=== PATIENT | female | born 1960 | race African-American/Black ===

== ENCOUNTER 2016-10-11 17:34 | Inpatient (IN) | payer OTHER ==
--- NOTE | 2016-10-11 18:11 | HP ---
CIWA Score - CIWA Score Nausea/Vomitin Muscle Tremors: 3 Anxiety: 3 Agitation: 2 Paroxysmal Sweats: 1-Minimal Palms Moist Orientation: 0-Oriented Tacttile Disturbances: 2-Mild Itch/Numbness/Burn Auditory Disturbances: 2-Mild Harshness/Frighten Visual Disturbances: 2-Mild Sensitivity Headache: 2-Mild CIWA-Ar Total Score: 20 Admission ROS BHS - HPI Chief Complaint: I NEED HELP TO STOP DRINKING ALCOHOL AND DRUG COCAINE Allergies/Adverse Reactions: Allergies Allergy/AdvReac Type Severity Reaction Status Date / Time No Known Allergies Allergy Verified 10/11/16 18:04 History of Present Illness: THIS 56 YEARS OLD FEMALE WITH ALCOHOL AND COCAINE DEPENDENCE,WITHDRAWAL SYMPTOM, LAST DETOX 09/08 NOT COMPLETED,LEFT AFTER ONE DAY, HTN ON MEDICATION HIV SINCE 1995 WIEUGHT LOSS NICOTINE DEPENDENCE LONGEST PERIOD SOBRIETY 17 YEARS Exam Limitations: No Limitations - Ebola screening Have you traveled outside of the country in the last 21 days: No Have you had contact with anyone from an Ebola affected area: No Do you have a fever: No - Review of Systems Constitutional: Loss of Appetite, Malaise, Night Sweats, Changes in sleep, Weakness, Unintentional Wgt. Loss EENT: reports: Nose Congestion Respiratory: reports: No Symptoms reported Cardiac: reports: Palpitations GI: reports: Diarrhea, Nausea, Poor Appetite, Vomiting, Abdominal cramping : reports: No Symptoms Reported Musculoskeletal: reports: Back Pain, Muscle Pain Integumentary: reports: Dryness Neuro: reports: Tremors Endocrine: reports: No Symptoms Reported Hematology: reports: No Symptoms Reported, Other (HIV) Psychiatric: reports: Depressed Patient History - Patient Medical History Hx Anemia: No Hx Asthma: No Hx Chronic Obstructive Pulmonary Disease (COPD): No Hx Cancer: No Hx Cardiac Disorders: No Hx Congestive Heart Failure: No Hx Hypertension: No Hx Hypercholesterolemia: No Hx Pacemaker: No HX Cerebrovascular Accident: No Hx Seizures: No Hx Dementia: No Hx Diabetes: No Hx Gastrointestinal Disorders: No Hx Liver Disease: No Hx Genitourinary Disorders: No Hx Sexually Transmitted Disorders: No Hx Renal Disease (ESRD): No Hx Thyroid Disease: No Hx Human Immunodeficiency Virus (HIV): Yes (SINCE 1995) Hx Hepatitis C: No Hx Depression: Yes Hx Suicide Attempt: No Hx Bipolar Disorder: No Hx Schizophrenia: No Other Medical History: NO SUICIDAL,NO HOLICIDAL - Patient Surgical History Hx Cholecystectomy: Yes (LAP CHOLECYSTECTOMY 2004 ) - PPD History Previous Implant?: Yes Documented Results: Negative w/o proof Implanted On Prior [facility] Admission?: No PPD to be Administered?: Yes - Reproductive History Patient is a Female of Child Bearing Age (11 -55 yrs old): Yes Patient : No - Smoking Cessation Smoking history: Current every day smoker Have you smoked in the past 12 months: Yes Aproximately how many cigarettes per day: 20 Cigars Per Day: 0 Hx Chewing Tobacco Use: No Initiated information on smoking cessation: Yes 'Breaking Loose' booklet given: 10/11/16 - Substance & Tx. History Hx Alcohol Use: Yes Hx Substance Use: No Substance Use Type: Alcohol, Cocaine Hx Substance Use Treatment: Yes ([facility] 09/08 NOT CPMPLETED) - Substances Abused Alcohol Route: Oral Frequency: Daily Amount used: 1PINT OF VODKA/4 OF 40 OZS OF BEER Age of first use: 15 Date of Last Use: 10/10/16 Cocaine Route: Smoking Frequency: Daily Amount used: 200$ Age of first use: 36 Date of Last Use: 10/09/16 Family Disease History - Family Disease History Family Disease History: Other: Mother (ALCOHOL,), Brother (ALCOHOL), Sister (ALCOHOL,DSA) Admission Physical Exam S - Vital Signs Vital Signs: Vital Signs Temperature 98.4 F 10/11/16 18:35 Pulse Rate 75 10/11/16 18:35 Respiratory Rate 20 10/11/16 18:35 Blood Pressure 155/94 10/11/16 18:35 O2 Sat by Pulse Oximetry (%) - Physical General Appearance: Yes: Moderate Distress, Tremorous, Irritable, Sweating, Anxious HEENTM: Yes: Nasal Congestion, Rhinorrhea Respiratory: Yes: Lungs Clear Neck: Yes: Within Normal Limits Breast: Yes: Breast Exam Deferred Cardiology: Yes: Within Normal Limits, Regular Rate, S1, S2 Abdominal: Yes: Within Normal Limits, Normal Bowel Sounds, Non Tender, Flat, Soft Genitourinary: Yes: Within Normal Limits Back: Yes: Muscle Spasm Musculoskeletal: Yes: Back pain, Muscle Pain Extremities: Yes: Tremors Neurological: Yes: maintenance construction helper II-XII NML intact, Fully Oriented, Alert, Motor Strength 5/5 Integumentary: Yes: Dry Lymphatic: Yes: Within Normal Limits - Diagnostic (1) Alcohol dependence with uncomplicated withdrawal Current Visit: Yes Status: Acute (2) Cocaine dependence, uncomplicated Current Visit: Yes Status: Acute (3) Essential hypertension Current Visit: Yes Status: Acute (4) HIV (human immunodeficiency virus infection) Current Visit: Yes Status: Acute (5) Weight loss Current Visit: Yes Status: Acute (6) S/P laparoscopic cholecystectomy Current Visit: Yes Status: Acute (7) Nicotine dependence Current Visit: Yes Status: Acute Cleared for Admission BHS - Detox or Rehab [facility] Level of Care: Medically Managed Detox Regimen/Protocol: Librium BHS Breath Alcohol Content Breath Alcohol Content: 0 Vital Signs - Vital Signs Vital Signs Refused: No Temperature: 98.4 F Temperature Source: Oral Pulse Rate: 75 Respiratory Rate: 20 Blood Pressure: 155/94 BP Location: Left Arm - Height Height: 5 ft 4 in - Weight Weight: 154 lb Weight Measurement Method: Standing Scale Body Mass Index (BMI): 26.4 Urine Pregancy Test - Test Device Lot Number: [id number] Expiration Date: 03/22/18 - Control Horizontal Line in Upper Control Window?: Yes - Result Urine Test Results: Negative- NO Line Present Urine Drug Screen - Test Device Lot Number: [id number] Expiration Date: 12/20/17 - Control Is Test Valid: Yes - Results Drug Screen Negative: No Urine Drug Screen Results: YANET-Cocaine
[2016-10-11 18:27] VITALS: BMI 26.4
[2016-10-11] MEDS ORDERED: LOPERAMIDE HCL 2 MG CAPSULE PO PRN (18:36)
[2016-10-11] MEDS ORDERED: MENTHOL/PHENOL 1 EACH UD MM PRN (18:36)
[2016-10-11] MEDS ORDERED: NICOTINE POLACRILEX 2 MG GUM BC PRN (18:36)
[2016-10-11] MEDS ORDERED: IBUPROFEN 400 MG TABLET (FP) PO PRN (18:36)
[2016-10-11] MEDS ORDERED: MAGNESIUM HYDROX 2400MG/30ML ORAL SUSPENSION 30 ML CUP PO PRN (18:36)
[2016-10-11] MEDS ORDERED: MAG HYDROX/AL HYDROX/SIMETH 30 ML UNIT-DOSE CUP PO PRN (18:36)
[2016-10-11] MEDS ORDERED: chlordiazePOXIDE HCL 25 MG CAPSULE PO ONE (18:36)
[2016-10-11] MEDS ORDERED: ACETAMINOPHEN 325 MG TABLET (FP) PO PRN (18:36)
[2016-10-11] MEDS ORDERED: guaiFENesin/D-METHORPHAN HB 10 ML UNIT-DOSE CUPS PO PRN (18:36)
[2016-10-11] MEDS ORDERED: MAGNESIUM CITRATE 300 ML BOTTLE PO PRN (18:36)
[2016-10-11] MEDS ORDERED: hydrOXYzine PAMOATE 50 MG CAPSULE (FP) PO PRN (18:36)
[2016-10-11] MEDS ORDERED: P-EPHED 60MG/TRIPROLIDI 2.5MG TABLET PO PRN (18:36)
[2016-10-11] MEDS ORDERED: chlordiazePOXIDE HCL 25 MG CAPSULE PO PRN (18:36)
[2016-10-11] MEDS ORDERED: diphenhydrAMINE HCL 50 MG CAPSULE PO PRN (18:36)
[2016-10-11] MEDS ORDERED: cloNIDine HCL 0.1 MG TABLET PO ONE (20:08)
[2016-10-11] MEDS: THIAMINE HCL 100 MG TABLET (FP) PO SCH (22:43)
[2016-10-11] MEDS: chlordiazePOXIDE HCL 25 MG CAPSULE PO SCH (22:43)
[2016-10-12] MEDS: chlordiazePOXIDE HCL 25 MG CAPSULE PO SCH ×4 (06:31→22:40)
[2016-10-12 10:08] LABS: ALBUMIN 3.1 g/dl (3.4-5.0); CALCIUM 8.5 mg/dL (8.5-10.1); MCH 21.3 pg (25.7-33.7); MCHC 30.6 g/dl (32.0-36.0); MEAN CELL VOLUME 69.8 fl (80-96); MEAN PLT VOLUME 8.7 fl (7.5-11.1); PLATELET COUNT 224 K/MM3 (134-434); RDW 17.6 % (11.6-15.6)
[2016-10-12 10:10] LABS: BILIRUBIN,TOTAL 0.3 mg/dL (0.2-1.0); TOT PROT 7.1 g/dl (6.4-8.2)
[2016-10-12] MEDS: PRENATAL VITAMINS W/ FOLIC ACID TABLET (FP) PO SCH (10:57)
--- NOTE | 2016-10-12 13:13 | PN ---
S CIWA - CIWA Score Nausea/Vomitin Muscle Tremors: 3 Anxiety: 3 Agitation: 2 Paroxysmal Sweats: 1-Minimal Palms Moist Orientation: 0-Oriented Tacttile Disturbances: 1-Very Mild Itch/Numbness Auditory Disturbances: 1-Very Mild Visual Disturbances: 1-Very Mild Sensitivity Headache: 2-Mild CIWA-Ar Total Score: 17 BHS Progress Note (SOAP) Subjective: ALERT,IRRITABLE,ANXIOUS,INTERRUPTED SLEEP,TREMOR Objective: 10/12/16 13:11 Vital Signs Temperature 98.4 F 10/12/16 13:07 Pulse Rate 75 10/12/16 13:07 Respiratory Rate 20 10/12/16 13:07 Blood Pressure 155/94 10/12/16 13:07 O2 Sat by Pulse Oximetry (%) EKG NSR LVH Laboratory Last Values WBC 8.0 K/mm3 (4.0-10.0) 10/12/16 06:15 RBC 5.33 M/mm3 (3.60-5.2) H 10/12/16 06:15 Hgb 11.4 GM/dL (10.7-15.3) 10/12/16 06:15 Hct 37.2 % (32.4-45.2) 10/12/16 06:15 MCV 69.8 fl (80-96) L 10/12/16 06:15 MCHC 30.6 g/dl (32.0-36.0) L 10/12/16 06:15 RDW 17.6 % (11.6-15.6) H 10/12/16 06:15 Plt Count 224 K/MM3 (134-434) 10/12/16 06:15 MPV 8.7 fl (7.5-11.1) 10/12/16 06:15 Sodium 144 mmol/L (136-145) 10/12/16 06:15 Potassium 3.5 mmol/L (3.5-5.1) 10/12/16 06:15 Chloride 108 mmol/L (98-107) H 10/12/16 06:15 Carbon Dioxide 29 mmol/L (21-32) 10/12/16 06:15 Anion Gap 7 (8-16) L 10/12/16 06:15 BUN 17 mg/dL (7-18) 10/12/16 06:15 Creatinine 1.0 mg/dL (0.55-1.02) 10/12/16 06:15 Creat Clearance w eGFR 57.56 (>60) 10/12/16 06:15 Random Glucose 91 mg/dL (74-106) 10/12/16 06:15 Calcium 8.5 mg/dL (8.5-10.1) 10/12/16 06:15 Total Bilirubin 0.3 mg/dL (0.2-1.0) 10/12/16 06:15 AST 17 U/L (15-37) 10/12/16 06:15 ALT 19 U/L (12-78) 10/12/16 06:15 Alkaline Phosphatase 86 U/L (45-117) 10/12/16 06:15 Total Protein 7.1 g/dl (6.4-8.2) 10/12/16 06:15 Albumin 3.1 g/dl (3.4-5.0) L 10/12/16 06:15 OTHER LABS PENDING Assessment: 10/12/16 13:12 WITHDRAWAL SYMPTOM Plan: CONTINUE DETOX
[2016-10-12] MEDS ORDERED: cloNIDine HCL 0.1 MG TABLET PO ONE (13:30)
--- NOTE | 2016-10-12 14:13 | CONSULT ---
[facility] Psychiatric Consult - Data Date of interview: 10/12/16 Admission source: [facility] Identifying data: First admission to [facility] for this 56 y/o AA female seeking detox treatment on for alcohol and cocaine (crack) dependence.Patient is single,a mother of eight,homeless (snf),unemployed and supported on [employer] funds. Substance Abuse History: - Smoking Cessation. Smoking history: Current every day smoker. Have you smoked in the past 12 months: Yes. Aproximately how many cigarettes per day: 20. Cigars Per Day: 0. Hx Chewing Tobacco Use: No. Initiated information on smoking cessation: Yes. 'Breaking Loose' booklet given : 10/11/16. - Substance & Tx. History. Hx Alcohol Use: Yes. Hx Substance Use : No. Substance Use Type: Alcohol, Cocaine. Hx Substance Use Treatment: Yes ( [facility] 09/08 NOT CPMPLETED). - Substances Abused. Alcohol. Route: Oral. Frequency: Daily. Amount used: 1PINT OF VODKA/4 OF 40 OZS OF BEER. Age of first use: 15. Date of Last Use: 10/10/16. Cocaine. Route: Smoking. Frequency: Daily. Amount used: 200$. Age of first use: 36. Date of Last Use: 10/09/16. Patient confirmed this report of substance use in my interview. Medical History: HIV infection since 1995 (on ART drugs),hypertension,CVA with right sided weakness (1975),Hinkle's palsy (left palpebral ptosis),herpes genitalis and a history of cholecystectomy (2004). Psychiatric History: No reported history of psychiatric hospitalizations.Patient remembers that,in the past,she had received the diagnosis of MDD." I used to be on psychiatric medications but I stopped taking them a long time ago." Names of the medications are not recalled.Ms Johnson states that she is not interested in medications other than her detox drugs.She reports a history of suicide attempts via overdose with medications. Physical/Sexual Abuse/Trauma History: Patient denies. Additional Comment: Urine Drug Screen Results: YANET-Cocaine.Noted. Mental Status Exam - Mental Status Exam Alert and Oriented to: Time, Place, Person Cognitive Function: Good Patient Appearance: Well Groomed Mood: Hopeful, Euthymic Affect: Appropriate, Normal Range Patient Behavior: Fatigued, Appropriate, Cooperative Speech Pattern: Clear Voice Loudness: Normal Thought Process: Goal Oriented Thought Disorder: Not Present Hallucinations: Denies Suicidal Ideation: Denies Homicidal Ideation: Denies Insight/Judgement: Poor Sleep: Well Appetite: Good Gait/Station: Shuffling (due to past stroke) Psychiatric Findings - Problem List ([place] 1, 2,3) (1) Alcohol dependence with uncomplicated withdrawal Current Visit: Yes Status: Acute (2) Cocaine dependence, uncomplicated Current Visit: Yes Status: Acute (3) Essential hypertension Current Visit: Yes Status: Acute (4) HIV (human immunodeficiency virus infection) Current Visit: Yes Status: Acute (5) Nicotine dependence Current Visit: Yes Status: Acute (6) S/P laparoscopic cholecystectomy Current Visit: No Status: Chronic - Initial Treatment Plan Initial Treatment Plan: Psychoeducation.Detoxification.Observation.
[2016-10-12 16:16] LABS: URINE APPEARANCE CLEAR; URINE BILIRUBIN NEGATIVE (NEGATIVE); URINE BLOOD NEGATIVE (NEGATIVE); URINE COLOR LTYELLOW; URINE GLUCOSE (UA) NEGATIVE (NEGATIVE); URINE KETONE NEGATIVE (NEGATIVE); URINE NITRITE NEGATIVE (NEGATIVE); URINE PROTEIN NEGATIVE (NEGATIVE); URINE UROBILINOGEN NEGATIVE E.U./dl (0.2-1.0)
[2016-10-12 16:20] LABS: URINE LEUK ESTERASE 1+ (NEGATIVE)
--- NOTE | 2016-10-12 16:26 | EKG ---
Test Reason : Blood Pressure : / mmHG Vent. Rate : 071 BPM Atrial Rate : 071 BPM P-R Int : 188 ms QRS Dur : 096 ms QT Int : 418 ms P-R-T Axes : 051 015 018 degrees QTc Int : 454 ms NORMAL SINUS RHYTHM VOLTAGE CRITERIA FOR LEFT VENTRICULAR HYPERTROPHY ABNORMAL ECG NO PREVIOUS ECGS AVAILABLE Confirmed by JUNIOR MCGINNIS MD ([id number]) on 10/12/2016 4:26:29 PM Referred By: Confirmed By:JUNIOR MCGINNIS MD
[2016-10-12 17:05] LABS: URINE WBC 4 /hpf (3-5)
[2016-10-12] MEDS: THIAMINE HCL 100 MG TABLET (FP) PO SCH (22:40)
[2016-10-13] MEDS: chlordiazePOXIDE HCL 25 MG CAPSULE PO SCH ×3 (06:45→17:17)
[2016-10-13] MEDS: PRENATAL VITAMINS W/ FOLIC ACID TABLET (FP) PO SCH (10:55)
--- NOTE | 2016-10-13 13:32 | PN ---
S CIWA - CIWA Score Nausea/Vomitin Muscle Tremors: 2 Anxiety: 2 Agitation: 2 Paroxysmal Sweats: 3 Orientation: 0-Oriented Tacttile Disturbances: 1-Very Mild Itch/Numbness Auditory Disturbances: 0-None Visual Disturbances: 0-None Headache: 0-None Present CIWA-Ar Total Score: 12 S Progress Note (SOAP) Subjective: sweats , interrupted sleep Objective: 10/13/16 13:31 Vital Signs Temperature 97.9 F 10/13/16 10:19 Pulse Rate 79 10/13/16 10:19 Respiratory Rate 18 10/13/16 10:19 Blood Pressure 150/85 10/13/16 10:19 O2 Sat by Pulse Oximetry (%) Laboratory Tests 10/12/16 10/12/16 10/12/16 06:15 06:15 06:15 WBC 8.0 RBC 5.33 H Hgb 11.4 Hct 37.2 MCV 69.8 L MCHC 30.6 L RDW 17.6 H Plt Count 224 MPV 8.7 Sodium 144 Potassium 3.5 Chloride 108 H Carbon Dioxide 29 Anion Gap 7 L BUN 17 Creatinine 1.0 Creat Clearance w eGFR 57.56 Random Glucose 91 Calcium 8.5 Total Bilirubin 0.3 AST 17 ALT 19 Alkaline Phosphatase 86 Total Protein 7.1 Albumin 3.1 L Urine Color Urine Appearance Urine pH Ur Specific [place] Urine Protein Urine Glucose (UA) Urine Ketones Urine Blood Urine Nitrite Urine Bilirubin Urine Urobilinogen Ur Leukocyte Esterase Urine WBC Ur Epithelial Cells RPR Titer Nonreactive 10/12/16 15:30 WBC RBC Hgb Hct MCV MCHC RDW Plt Count MPV Sodium Potassium Chloride Carbon Dioxide Anion Gap BUN Creatinine Creat Clearance w eGFR Random Glucose Calcium Total Bilirubin AST ALT Alkaline Phosphatase Total Protein Albumin Urine Color Ltyellow Urine Appearance Clear Urine pH 6.0 Ur Specific [place] 1.010 Urine Protein Negative Urine Glucose (UA) Negative Urine Ketones Negative Urine Blood Negative Urine Nitrite Negative Urine Bilirubin Negative Urine Urobilinogen Negative Ur Leukocyte Esterase 1+ H Urine WBC 4 Ur Epithelial Cells Rare RPR Titer pt aox3 in nad ambulating Assessment: 10/13/16 13:32 withdrawl sx's Plan: cont. detox increase fluids
[2016-10-13] MEDS: THIAMINE HCL 100 MG TABLET (FP) PO SCH (22:44)
[2016-10-13] MEDS: chlordiazePOXIDE 5 MG CAPSULE PO SCH (22:44)
[2016-10-14] MEDS: chlordiazePOXIDE 5 MG CAPSULE PO SCH ×4 (06:01→18:18)
[2016-10-14] MEDS: PRENATAL VITAMINS W/ FOLIC ACID TABLET (FP) PO SCH (10:33)
--- NOTE | 2016-10-14 11:43 | PN ---
BHS Progress Note (SOAP) Subjective: tired sweats Objective: 10/14/16 11:42 Vital Signs Temperature 98.1 F 10/14/16 10:29 Pulse Rate 91 H 10/14/16 10:29 Respiratory Rate 16 10/14/16 10:29 Blood Pressure 162/89 10/14/16 10:29 O2 Sat by Pulse Oximetry (%) awake/alert ambulating no acute distress Assessment: 10/14/16 11:42 withdrawal sx Plan: continue detox increase fluids d/c in am
[2016-10-14] MEDS ORDERED: cloNIDine HCL 0.1 MG TABLET PO ONE (14:05)
[2016-10-14] MEDS ORDERED: NICOTINE 21 MG/24 HOURS TOPICAL PATCH TD SCH (14:15)
[2016-10-14] MEDS: THIAMINE HCL 100 MG TABLET (FP) PO SCH (22:48)
[2016-10-14] MEDS: chlordiazePOXIDE HCL 10 MG CAPSULE PO SCH (22:48)
[2016-10-15] MEDS: chlordiazePOXIDE HCL 10 MG CAPSULE PO SCH (07:40)
--- NOTE | 2016-10-15 09:16 | DS ---
[facility] Detox Discharge Summary Admission Date: 10/11/16 Discharge Date: 10/15/16 - History Present History: Alcohol Dependence, Cocaine Dependence - Physical Exam Results Vital Signs: Vital Signs Temperature 98.3 F 10/15/16 07:08 Pulse Rate 77 10/15/16 07:08 Respiratory Rate 18 10/15/16 07:08 Blood Pressure 134/74 10/15/16 07:08 O2 Sat by Pulse Oximetry (%) - Treatment Hospital Course: Detox Protocol Followed, Detoxed Safely, Responded well, Discharged Condition Good - Medication Discharge Medications: Ambulatory Orders Unobtainable [Unobtainable] 10/11/16 - Diagnosis (1) Alcohol dependence with uncomplicated withdrawal Current Visit: Yes Status: Chronic (2) Cocaine dependence, uncomplicated Current Visit: Yes Status: Chronic (3) Essential hypertension Current Visit: Yes Status: Chronic (4) HIV (human immunodeficiency virus infection) Current Visit: Yes Status: Chronic (5) Nicotine dependence Current Visit: Yes Status: Acute Qualifiers: Nicotine product type: cigarettes Substance use status: uncomplicated Qualified Code(s): F17.210 - Nicotine dependence, cigarettes, uncomplicated (6) Weight loss Current Visit: Yes Status: Acute - AMA Did Patient Leave Against Medical Advice: No
[2016-10-15 09:55] VITALS: BP 158/92; PULSE 86; TEMP 98.2
== END 2016-10-15 10:07 | disposition home or self-care (01) | DRG 774 ==
LOC: YASAS 17:34 → Y6N 19:00
PROVIDERS: ADMIT Internal Medicine; ATTEND Internal Medicine Addiction Medicine
PROC: HZ2ZZZZ Detoxification Services for Substance Abuse Treatment (ICD-10-PCS; principal; 2016-10-11)
DX: F10.230 Alcohol dependence with withdrawal, uncomplicated (principal); F14.20 Cocaine dependence, uncomplicated; F17.210 Nicotine dependence, cigarettes, uncomplicated; I10 Essential (primary) hypertension; Z21 Asymptomatic human immunodeficiency virus [HIV] infection status; Z87.898 Personal history of other specified conditions; Z90.49 Acquired absence of other specified parts of digestive tract; Z87.42 Personal history of other diseases of the female genital tract; Z86.73 Personal history of transient ischemic attack (TIA), and cerebral infarction without residual deficits
CPT/HCPCS: 36415; 80053; 81003; 81015; 85027; 86593; 93005; 93010

== ENCOUNTER 2018-12-26 17:00 | Inpatient (IN) | payer OTHER ==
[2018-12-26 18:57] VITALS: BMI 24.0
--- NOTE | 2018-12-26 20:14 | HP ---
CIWA Score Nausea/Vomitin-No Nausea/No Vomiting Muscle Tremors: None Anxiety: 1-Mildly Anxious Agitation: 0-Normal Activity Paroxysmal Sweats: No Perspiration Orientation: 0-Oriented Tacttile Disturbances: 0-None Auditory Disturbances: 0-None Visual Disturbances: 0-None Headache: 0-None Present CIWA-Ar Total Score: 1 - Admission Criteria OASAS Guidelines: Admission for Medically Managed Detox: Requires at least one of the followin. CIWA greater than 12 2. Seizures within the past 24 hours 3. Delirium tremens within the past 24 hours 4. Hallucinations within the past 24 hours 5. Acute intervention needed for co occurring medical disorder 6. Acute intervention needed for co occurring psychiatric disorder 7. Severe withdrawal that cannot be handled at a lower level of care (continued vomiting, continued diarrhea, abnormal vital signs) requiring intravenous medication and/or fluids 8. Admission ROS S - [facility] Chief Complaint: I use a lot of cocaine and drink some alcohol. Allergies/Adverse Reactions: Allergies Allergy/AdvReac Type Severity Reaction Status Date / Time No Known Allergies Allergy Verified 12/26/18 18:36 History of Present Illness: Here for detox from cocaine and alcohol. Has had recent attempts of stopping cocaine use on own w/o achievement. Cocaine use since age 22. Started w/ sniffing and started smoking cocaine since age 39. Uses approx $ 200/day. Alcohol use since age 15. Used to drink more. Current use is now 2-3 16-24 ox cans 1-2x/week. Nicotine use since age 15. Current use approx 2 PPD. PMHx: HTN; Hinkle's Palsy; HIV; Herpes rash. States compliant w/ all medications. MHHx: Depression. Denies thoughts of harming self or others. States does not see a psychiatrist. Longest period of sobriety [id number] Current CIWA is a "1" and patient is not eligible for detox, but does meet rehab requirements. Patient states willing to go to rehab. Search Terms: Abimael Johnson, 1960 Search Date: 12/26/2018 08:23:11 PM The Drug Utilization Report below displays all of the controlled substance prescriptions, if any, that your patient has filled in the last twelve months. The information displayed on this report is compiled from pharmacy submissions to the Department, and accurately reflects the information as submitted by the pharmacies. This report was requested by: Caryl Zayas | Reference #: [id number] There are no results for the search terms that you entered Exam Limitations: No Limitations - Ebola screening Have you traveled outside of the country in the last 21 days: No (N) Have you had contact with anyone from an Ebola affected area: No Have you been sick,other than usual withdrawal symptoms: No (Denies recent measles exposure) Do you have a fever: No - Review of Systems Constitutional: Changes in sleep (Difficulty falling asleep) EENT: reports: Blurred Vision, Dental Problems (No pain.), Other Respiratory: reports: No Symptoms reported Cardiac: reports: No Symptoms Reported GI: reports: Diarrhea (Watery, brownish stool x 4 weeks. - States takes OTC imodium) : reports: No Symptoms Reported Musculoskeletal: reports: No Symptoms Reported Integumentary: reports: Other (Herpes rash on buttocks) Neuro: reports: Other ([place]' Palsy) Endocrine: reports: No Symptoms Reported Hematology: reports: Anemia (Unsure of type) Psychiatric: reports: Judgement Intact, Orientated x3, Depressed (Denies thoughts of harming self or others) Patient History - Patient Medical History Hx Anemia: No Hx Asthma: No Hx Chronic Obstructive Pulmonary Disease (COPD): No Hx Cancer: No Hx Cardiac Disorders: No Hx Congestive Heart Failure: No Hx Hypertension: No Hx Hypercholesterolemia: No Hx Pacemaker: No HX Cerebrovascular Accident: No Hx Seizures: No Hx Dementia: No Hx Diabetes: No Hx Gastrointestinal Disorders: No Hx Liver Disease: No Hx Genitourinary Disorders: No Hx Sexually Transmitted Disorders: No Hx Renal Disease (ESRD): No Hx Thyroid Disease: No Hx Human Immunodeficiency Virus (HIV): Yes (SINCE 1995) Hx Hepatitis C: No Hx Depression: Yes Hx Suicide Attempt: No Hx Bipolar Disorder: No Hx Schizophrenia: No - Patient Surgical History Past Surgical History: Yes Hx Neurologic Surgery: No Hx Cataract Extraction: No Hx Cardiac Surgery: No Hx Lung Surgery: No Hx Breast Surgery: No Hx Breast Biopsy: No Hx Abdominal Surgery: No Hx Appendectomy: No Hx Cholecystectomy: Yes (LAP CHOLECYSTECTOMY 2004 ) Hx Genitourinary Surgery: No Hx Section: No Hx Orthopedic Surgery: No Anesthesia Reaction: No - PPD History Previous Implant?: Yes Documented Results: Negative w/proof Implanted On Prior R Admission?: Yes Date: 10/13/16 PPD to be Administered?: No - Reproductive History Last Menstrual Period: 08/12/15 Patient : No - Smoking Cessation Smoking history: Current every day smoker Have you smoked in the past 12 months: Yes Aproximately how many cigarettes per day: 40 Cigars Per Day: 0 Hx Chewing Tobacco Use: No Initiated information on smoking cessation: Yes 'Breaking Loose' booklet given: 12/26/18 - Substance & Tx. History Hx Alcohol Use: Yes Hx Substance Use: Yes Substance Use Type: Alcohol, Cocaine Hx Substance Use Treatment: Yes (detox, rehab) - Substances abused Alcohol Substance route: Oral Frequency: Daily Amount used: 5 CANS OF BEER (24 OUNCES) Age of first use: 15 Date of last use: 12/26/18 Crack Substance route: Smoking Frequency: Daily Amount used: 200 Date of last use: 12/25/18 Family Disease History - Family Disease History Family Disease History: Other: Mother (ALCOHOL,), Brother (ALCOHOL), Sister (ALCOHOL,DSA) Admission Physical Exam [facility] - Vital Signs Vital Signs: Vital Signs - 24 hr 12/26/18 12/26/18 18:30 19:32 Temperature 97.8 F 97.8 F Pulse Rate 68 68 Respiratory 20 20 Rate Blood Pressure 158/80 158/80 - Physical General Appearance: Yes: No Apparent Distress, Anxious HEENTM: Yes: EOMI, Hearing grossly Normal, Normal Voice, TRUDI, Pharynx Normal, Other ((L) facial droop) Respiratory: Yes: Lungs Clear, Normal Breath Sounds, No Respiratory Distress Neck: Yes: No masses,lesions,Nodules, Supple Breast: Yes: Breast Exam Deferred Cardiology: Yes: Regular Rhythm, Regular Rate, S1, S2 Abdominal: Yes: Normal Bowel Sounds, Non Tender, Soft Genitourinary: Yes: Within Normal Limits Back: Yes: Normal Inspection Musculoskeletal: Yes: full range of Motion, Gait Steady Extremities: Yes: Normal Capillary Refill, Normal Range of Motion, Non-Tender Neurological: Yes: Fully Oriented, Alert, Motor Strength 5/5, Facial Droop ((L) facial droop) Integumentary: Yes: Normal Color, Dry, Warm, Other (Rash on (R) buttock,) Lymphatic: Yes: Within Normal Limits - Diagnostic (1) Uncomplicated alcohol abuse Current Visit: Yes Status: Acute (2) Nicotine dependence Current Visit: Yes Status: Chronic Qualifiers: Nicotine product type: cigarettes Substance use status: uncomplicated Qualified Code(s): F17.210 - Nicotine dependence, cigarettes, uncomplicated (3) Cocaine dependence, uncomplicated Current Visit: Yes Status: Chronic (4) Essential hypertension Current Visit: Yes Status: Chronic (5) HIV (human immunodeficiency virus infection) Current Visit: Yes Status: Chronic Qualifiers: HIV symptom status: unspecified Qualified Code(s): B20 - Human immunodeficiency virus [HIV] disease (6) Hinkle's palsy Current Visit: Yes Status: Chronic Cleared for Admission BHS - Detox or Rehab Claeared for Rehab Admission: Yes Breathalyzer - Breathalyzer Breathalyzer: 0 Urine Drug Screen - Test Device Lot number: [id number] Expiration date: 07/22/19 - Control Is test valid?: Yes - Results Drug screen NEGATIVE: No Urine drug screen results: YANET-Cocaine Inpatient Rehab Admission - Rehab Decision to Admit Inpatient rehab admission?: Yes - Initial Determination Are CD services needed?: Yes Free of communicable disease: Yes Not in need of hospitalization: Yes - Rehab Admission Criteria Previous failed treatment: Yes Poor recovery environment: Yes Comorbidities: Yes Lacks judgement: No Patient is meeting Inpatient Rehab admission criteria:: Yes
[2018-12-26] MEDS ORDERED: MAGNESIUM CITRATE 300 ML BOTTLE PO PRN (20:53)
[2018-12-26] MEDS ORDERED: IBUPROFEN 400 MG TABLET (FP) PO PRN (20:53)
[2018-12-26] MEDS ORDERED: hydrOXYzine PAMOATE 25 MG CAPSULE (FP) PO PRN (20:53)
[2018-12-26] MEDS ORDERED: P-EPHED 60MG/TRIPROLIDI 2.5MG TABLET PO PRN (20:53)
[2018-12-26] MEDS ORDERED: MAG HYDROX/AL HYDROX/SIMETH 30 ML UNIT-DOSE CUP PO PRN (20:53)
[2018-12-26] MEDS ORDERED: MAGNESIUM HYDROX 2400MG/30ML ORAL SUSPENSION 30 ML CUP PO PRN (20:53)
[2018-12-26] MEDS ORDERED: ACETAMINOPHEN 325 MG TABLET (FP) PO PRN (20:53)
[2018-12-26] MEDS ORDERED: MENTHOL/PHENOL 1 EACH UD MM PRN (20:53)
[2018-12-26] MEDS ORDERED: LOPERAMIDE HCL 2 MG CAPSULE PO PRN (20:53)
[2018-12-26] MEDS ORDERED: guaiFENesin 200 MG/10 ML 10 ML UNIT-DOSE CUPS PO PRN (20:53)
[2018-12-26] MEDS: THIAMINE HCL 100 MG TABLET (FP) PO SCH (22:36)
[2018-12-26] MEDS: MELATONIN 5 MG TABLETS PO PRN (22:37)
[2018-12-27 02:52] LABS: URINE APPEARANCE CLEAR; URINE BILIRUBIN NEGATIVE (NEGATIVE); URINE COLOR YELLOW; URINE GLUCOSE (UA) NEGATIVE (NEGATIVE); URINE KETONE NEGATIVE (NEGATIVE); URINE LEUK ESTERASE NEGATIVE (NEGATIVE); URINE NITRITE NEGATIVE (NEGATIVE); URINE PROTEIN NEGATIVE (NEGATIVE); URINE UROBILINOGEN 0.2 mg/dL (0.2-1.0)
[2018-12-27] MEDS: PRENATAL VITAMINS W/ FOLIC ACID TABLET (FP) PO SCH (09:41)
[2018-12-27] MEDS: valACYclovir HCL 500 MG TABLET (FP) PO SCH (09:41)
[2018-12-27] MEDS: NICOTINE 21 MG/24 HOURS TOPICAL PATCH TD SCH (09:41)
[2018-12-27 10:16] LABS: HEMATOCRIT 26.3 % (32.4-45.2); HEMOGLOBIN 7.7 GM/dL (10.7-15.3); MCH 23.6 pg (25.7-33.7); MCHC 29.5 g/dl (32.0-36.0); MEAN CELL VOLUME 80.1 fl (80-96); PLATELET COUNT 228 K/MM3 (134-434); RBC 3.28 M/mm3 (3.60-5.2); RDW 20.6 % (11.6-15.6)
[2018-12-27 10:22] LABS: ALBUMIN 2.7 g/dl (3.4-5.0); ALK PHOS 82 U/L (45-117); ANION GAP 8 MMOL/L (8-16); BILIRUBIN,TOTAL 0.6 mg/dL (0.2-1); BLOOD UREA NITROGEN 21 mg/dL (7-18); CALCIUM 8.2 mg/dL (8.5-10.1); CHLORIDE 118 mmol/L (98-107); CO2 21 mmol/L (21-32); CREATININE 1.3 mg/dL (0.55-1.3); GLUCOSE,RANDOM 84 mg/dL (74-106); POTASSIUM 3.8 mmol/L (3.5-5.1); SGOT/AST 11 U/L (15-37); SGPT/ALT 11 U/L (13-61); SODIUM 147 mmol/L (136-145); TOT PROT 6.4 g/dl (6.4-8.2)
[2018-12-27] MEDS: FLUCONAZOLE 100 MG TABLET (UD) PO SCH (11:00)
[2018-12-27] MEDS: PATIENT'S OWN MEDICATION (NON-FORMULARY) (Abacavir/Dolutegravir/Lamivudi [Triumeq 600-50-3 PO SCH (11:22)
--- NOTE | 2018-12-27 11:40 | EKG ---
Test Reason : Blood Pressure : / mmHG Vent. Rate : 062 BPM Atrial Rate : 062 BPM P-R Int : 214 ms QRS Dur : 088 ms QT Int : 438 ms P-R-T Axes : 053 027 027 degrees QTc Int : 444 ms SINUS RHYTHM WITH 1ST DEGREE A-V BLOCK OTHERWISE NORMAL ECG WHEN COMPARED WITH ECG OF 11-OCT-2016 20:02, NONSPECIFIC T WAVE ABNORMALITY NO LONGER EVIDENT IN LATERAL LEADS Confirmed by Rickey Green MD ([id number]) on 12/27/2018 11:40:31 AM Referred By: MARCIA COMER Confirmed By:Rickey Green MD
[2018-12-27] MEDS ORDERED: PT OWN MED DRAWER 7, Y5N ONE ×2 (14:34→15:59)
[2018-12-27] MEDS: NIFEdipine E.R. 30 MG TABLET (FP) PO SCH (15:00)
[2018-12-27] MEDS: FERROUS SO4 325 MG TABLET (FP) PO SCH (17:17)
[2018-12-27] MEDS: THIAMINE HCL 100 MG TABLET (FP) PO SCH (21:10)
[2018-12-27] MEDS: MELATONIN 5 MG TABLETS PO PRN (21:10)
[2018-12-28] MEDS: FLUCONAZOLE 100 MG TABLET (UD) PO SCH (10:14)
[2018-12-28] MEDS: valACYclovir HCL 500 MG TABLET (FP) PO SCH (10:14)
[2018-12-28] MEDS: NIFEdipine E.R. 30 MG TABLET (FP) PO SCH (10:15)
[2018-12-28] MEDS: NICOTINE 21 MG/24 HOURS TOPICAL PATCH TD SCH (10:15)
[2018-12-28] MEDS: PATIENT'S OWN MEDICATION (NON-FORMULARY) (Abacavir/Dolutegravir/Lamivudi [Triumeq 600-50-3 PO SCH (10:15)
[2018-12-28] MEDS: PRENATAL VITAMINS W/ FOLIC ACID TABLET (FP) PO SCH (10:15)
--- NOTE | 2018-12-28 10:44 | PN ---
S Progress Note (SOAP) Subjective: Notified by nursing staff that Ms. Johnson had bumped her right hand on the fire extinguisher. Reports mild pain, 2-3. Objective: 12/28/18 10:41PE: full range of motion, wrist, fingers.Hand bond manager equal bilaterally, Fine motor skills intact. No bruising, redness, or edema noted to right hand. 12/28/18 10:42 Assessment: Evaluation for accident with right hand. 12/28/18 10:42 Plan: No x-ray needed at present time. Will continue to monitor. Advised patient to take tylenol or motrin as needed for pain.
--- NOTE | 2018-12-28 12:31 | PN ---
[facility] Progress Note (SOAP) Subjective: pt served squash at lunch- pt has a known allergy to this but was served this food item- with itching and rash- will give Benadryl 50mg po stat and monitor
[2018-12-28] MEDS ORDERED: diphenhydrAMINE HCL 25 MG CAPSULE (FP) PO PRN (12:32)
[2018-12-28] MEDS ORDERED: diphenhydrAMINE HCL 25 MG CAPSULE (FP) PO ONE (12:45)
[2018-12-28] MEDS: FERROUS SO4 325 MG TABLET (FP) PO SCH (20:13)
[2018-12-28] MEDS: THIAMINE HCL 100 MG TABLET (FP) PO SCH (21:03)
[2018-12-29] MEDS: PRENATAL VITAMINS W/ FOLIC ACID TABLET (FP) PO SCH (09:52)
[2018-12-29] MEDS: NICOTINE 21 MG/24 HOURS TOPICAL PATCH TD SCH (09:52)
[2018-12-29] MEDS: FLUCONAZOLE 100 MG TABLET (UD) PO SCH (09:52)
[2018-12-29] MEDS: PATIENT'S OWN MEDICATION (NON-FORMULARY) (Abacavir/Dolutegravir/Lamivudi [Triumeq 600-50-3 PO SCH (09:52)
[2018-12-29] MEDS: NIFEdipine E.R. 30 MG TABLET (FP) PO SCH (09:53)
[2018-12-29] MEDS: valACYclovir HCL 500 MG TABLET (FP) PO SCH (09:53)
[2018-12-29] MEDS: NICOTINE POLACRILEX 2 MG GUM BUC PRN (15:36)
[2018-12-29] MEDS: FERROUS SO4 325 MG TABLET (FP) PO SCH (17:20)
[2018-12-29] MEDS: THIAMINE HCL 100 MG TABLET (FP) PO SCH (21:34)
[2018-12-30] MEDS ORDERED: PT OWN MED DRAWER 7, Y5N ONE (08:42)
[2018-12-30] MEDS: PRENATAL VITAMINS W/ FOLIC ACID TABLET (FP) PO SCH (10:09)
[2018-12-30] MEDS: FLUCONAZOLE 100 MG TABLET (UD) PO SCH (10:09)
[2018-12-30] MEDS: PATIENT'S OWN MEDICATION (NON-FORMULARY) (Abacavir/Dolutegravir/Lamivudi [Triumeq 600-50-3 PO SCH (10:09)
[2018-12-30] MEDS: valACYclovir HCL 500 MG TABLET (FP) PO SCH (10:09)
[2018-12-30] MEDS: NICOTINE 21 MG/24 HOURS TOPICAL PATCH TD SCH (10:10)
[2018-12-30] MEDS: NICOTINE POLACRILEX 2 MG GUM BUC PRN ×2 (10:11→21:24)
[2018-12-30] MEDS: NIFEdipine E.R. 30 MG TABLET (FP) PO SCH (11:00)
[2018-12-30] MEDS: FERROUS SO4 325 MG TABLET (FP) PO SCH (16:47)
[2018-12-30] MEDS: THIAMINE HCL 100 MG TABLET (FP) PO SCH (21:24)
[2018-12-30] MEDS: MELATONIN 5 MG TABLETS PO PRN (21:24)
[2018-12-31 09:17] VITALS: BP 142/84; PULSE 64; TEMP 97.3
[2018-12-31] MEDS: PRENATAL VITAMINS W/ FOLIC ACID TABLET (FP) PO SCH (09:32)
[2018-12-31] MEDS: valACYclovir HCL 500 MG TABLET (FP) PO SCH (09:32)
[2018-12-31] MEDS: FLUCONAZOLE 100 MG TABLET (UD) PO SCH (09:32)
[2018-12-31] MEDS: NICOTINE 21 MG/24 HOURS TOPICAL PATCH TD SCH (09:33)
[2018-12-31] MEDS: PATIENT'S OWN MEDICATION (NON-FORMULARY) (Abacavir/Dolutegravir/Lamivudi [Triumeq 600-50-3 PO SCH (09:33)
[2018-12-31] MEDS: NIFEdipine E.R. 30 MG TABLET (FP) PO SCH (09:34)
--- NOTE | 2018-12-31 09:48 | PN ---
[facility] Progress Note Note: patient do not want to continue treatment ,stated she would like to go home, will follow up with her own primary care provider and out patient program at [facility],the high risk of relapsing explained to patient,understood,all attempts to convince patient to stay with no avail, patient signed release against medical advice,also seen by counselor Vital Signs Temperature 97.3 F L 12/31/18 09:16 Pulse Rate 64 12/31/18 09:16 Respiratory Rate 16 12/31/18 09:16 Blood Pressure 142/84 12/31/18 09:16 O2 Sat by Pulse Oximetry (%) patient has all medications with her left unit is stable condition
--- NOTE | 2018-12-31 09:54 | PN ---
[facility] Progress Note Note: this note is for discharge summary of CARMITA URRUTIA date of admission 12/26/18 date of discharge 12/31/18 diagnosis alcohol dependence cocaine dependence hiv anemia hypertension nicotine dependence history of herpes patient signed release AMA left the unit in good and stable condition,no suicidal,no homicidal ideation
== END 2018-12-31 09:54 | disposition left against medical advice (07) | DRG 770 ==
LOC: YASAS 17:00 → Y3E 20:28
PROVIDERS: ADMIT Neuromusculoskeletal Medicine & OMM; ATTEND Neuromusculoskeletal Medicine & OMM
PROC: HZ42ZZZ Group Counseling for Substance Abuse Treatment, Cognitive-Behavioral (ICD-10-PCS; principal; 2018-12-26)
DX: F10.20 Alcohol dependence, uncomplicated (principal); F14.20 Cocaine dependence, uncomplicated; F17.210 Nicotine dependence, cigarettes, uncomplicated; I10 Essential (primary) hypertension; Z21 Asymptomatic human immunodeficiency virus [HIV] infection status; D64.9 Anemia, unspecified; G51.0 Bell's palsy; R21 Rash and other nonspecific skin eruption; L29.8 Other pruritus; M79.641 Pain in right hand; W22.8XXA Striking against or struck by other objects, initial encounter; Y93.9 Activity, unspecified; Y92.238 Other place in hospital as the place of occurrence of the external cause
CPT/HCPCS: 36415; 80053; 81003; 85027; 86593; 93005; 93010

== ENCOUNTER 2019-08-01 12:15 | Inpatient (IN) | payer OTHER ==
[2019-08-01 14:44] VITALS: BMI 24.9
--- NOTE | 2019-08-01 17:53 | HP ---
COWS - Scale Resting Pulse: 0= MD 80 or Below Sweatin= No chills or Flushing Restless Observation: 0= Sits Still Pupil Size: 0= Normal to Room Light Bone or Joint Aches: 0= None Runny Nose/ Eye Tearin= None GI Upset > 30mins: 0= None Tremor Observation: 0= None Yawning Observation: 0= None Anxiety or Irritability: 0= None Goose Flesh Skin: 0=Smooth Skin COWS Score: 0 CIWA Score - Admission Criteria OASAS Guidelines: Admission for Medically Managed Detox: Requires at least one of the followin. CIWA greater than 12 2. Seizures within the past 24 hours 3. Delirium tremens within the past 24 hours 4. Hallucinations within the past 24 hours 5. Acute intervention needed for co occurring medical disorder 6. Acute intervention needed for co occurring psychiatric disorder 7. Severe withdrawal that cannot be handled at a lower level of care (continued vomiting, continued diarrhea, abnormal vital signs) requiring intravenous medication and/or fluids 8. Admitting History and Physical - Admission Chief Complaint: Cocaine Rehab History of Present Illness: Pt is a 59 yo F with PMHx of HTN, Hinkle's Palsy, HIV, Herpes rash, Depression here for rehab from cocaine and alcohol. Lost her daughter day after due to Cancer of stomach, and pt went for her and could not stay for rehab last time she was here. Pt now wants to get her life together to take care of her grandkids. Pt had been at her ex-sister in laws and able to stay off drugs since Wednesday, daughters Wednesday and burial yesterday (Wednesday). Pt coughing with clear phlegm-3 weeks (before of daughter with poor appetite), no blood, no chills, no chest pain, no nasal congestion, sore throat+ , got flu vaccine, friend was sick and sister in law with a cold, left them yesterday. Pt to go to [facility] for outpt rehab cocaine last use Wednesday, used 10 bags crack cocaine Wednesday night before 2 bags Never injected, Cocaine use since age 22. Started w/ sniffing and started smoking cocaine since age 39. ETOH Last drink Beer, 2 cans of beer-6 oz Drinks occassionally, about once a week Alcohol use since age 15. Used to drink more. Current use is now 2-3 16-24 ox cans 1-2x/week. Nicotine 5cigs a day- 4PPD Nicotine use since age 15. Current use approx 2 PPD. Mental Health: In took pills to harm herself, Kalpana Emery is her psychiatrist, saw her about 6 months ago. Was on meds [id number], stopped taking psych meds on her own. Denies thoughts of harming self or others. Longest period of sobriety [id number] Takes BP medications- last yesterday morning, herpes meds- last use only when she has an outbreak- 7 months, pt reports now having an outbreak on her buttocks and requests the meds took HIv meds last 6months ago from PCP Kalpana Wilson, since she sold them to get high Pt reports neg mammogram February 2019, pending pap smear All: Chicken popcorn and zucchini- hives FHx of cancer- breast cancer- sister, alive, throat cancer- brother Grandma-cervical cancer- at 78yrs Social Hx Had 8 kids 2 are - one from Cancer-at 40years to breast Ca Other was 23 year old M- was killed, gunshot (2006) Other kids 39,37, 34, 32, 22, 20 Worked as a office assistant receptionist, 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 No problem with law currently Was in [facility] last 2016 (was in central booking and back for Shoplifting) Attempted to call pharmacy [facility] [address] and got no response Pt coughing and has been off HIV meds for over 6 months with hx of night sweats will send to [facility] for CXR R/O PCP Pt will be set for rehab once she returns if cleared from Don Would restart nifedipine for her, and valtrex- new outbreak right gluteal area For HIV meds will recommend a consult to [facility] when she returns Unable to confirm Meds for now History Source: Patient, Medical Record Limitations to Obtaining History: No Limitations - Past Medical History ACCOUNTANCY PROFESSOR: Yes: CVA ([id number], L facial droop, R sided numbness reportedly told it was Hinkle's palsy, no more hand numbness, has occassional face twisting in the cold) Cardiovascular: Yes: HTN Reproductive: Yes: Postmenopausal ...LMP: 08/12/15 Heme/Onc: Yes: Anemia Infectious Disease: Yes: HIV Psych: Yes: Depression - Smoking History Smoking history: Current every day smoker Have you smoked in the past 12 months: Yes Aproximately how many cigarettes per day: 40 - Alcohol/Substance Use Hx Alcohol Use: Yes Admission [facility] Allergies/Adverse Reactions: Allergies Allergy/AdvReac Type Severity Reaction Status Date / Time No Known Drug Allergies Allergy Verified 12/28/18 12:45 squash Allergy Intermediate Itching Uncoded 12/28/18 12:16 zucchini Allergy Intermediate Itching Uncoded 12/28/18 12:43 - Ebola screening Have you traveled outside of the country in the last 21 days: No Have you had contact with anyone from an Ebola affected area: No Do you have a fever: No - Review of Systems EENT: reports: Other (missing teeth) Respiratory: reports: Cough (phlegm-white) Cardiac: reports: No Symptoms Reported GI: reports: No Symptoms Reported : reports: No Symptoms Reported Musculoskeletal: reports: No Symptoms Reported Integumentary: reports: No Symptoms Reported Neuro: reports: No Symptoms reported Endocrine: reports: No Symptoms Reported Hematology: reports: Anemia Psychiatric: reports: Depressed Other Systems: Reviewed and Negative Patient History - Patient Medical History Hx Anemia: Yes Hx Asthma: No Hx Chronic Obstructive Pulmonary Disease (COPD): No Hx Cancer: No Hx Cardiac Disorders: No Hx Congestive Heart Failure: No Hx Hypertension: Yes Hx Hypercholesterolemia: No Hx Pacemaker: No HX Cerebrovascular Accident: No Hx Seizures: No Hx Dementia: No Hx Diabetes: No Hx Gastrointestinal Disorders: No Hx Liver Disease: No Hx Genitourinary Disorders: No Hx Sexually Transmitted Disorders: No Hx Renal Disease (ESRD): No Hx Thyroid Disease: No Hx Human Immunodeficiency Virus (HIV): Yes (SINCE 1995) Hx Hepatitis C: No Hx Depression: Yes Hx Suicide Attempt: No Hx Bipolar Disorder: No Hx Schizophrenia: No - Patient Surgical History Past Surgical History: Yes Hx Neurologic Surgery: No Hx Cataract Extraction: No Hx Cardiac Surgery: No Hx Lung Surgery: No Hx Breast Surgery: No Hx Breast Biopsy: No Hx Abdominal Surgery: No Hx Appendectomy: No Hx Cholecystectomy: Yes (LAP CHOLECYSTECTOMY 2004 ) Hx Genitourinary Surgery: No Hx Section: Yes (1997) Hx Orthopedic Surgery: No Anesthesia Reaction: No - PPD History Date: 12/28/18 - Reproductive History Patient is a Female of Child Bearing Age (11 -55 yrs old): No Last Menstrual Period: 08/12/15 - Smoking Cessation Smoking history: Current every day smoker Have you smoked in the past 12 months: Yes Aproximately how many cigarettes per day: 40 Cigars Per Day: 0 Hx Chewing Tobacco Use: No Initiated information on smoking cessation: Yes 'Breaking Loose' booklet given: 08/01/19 - Substance & Tx. History Hx Alcohol Use: Yes Hx Substance Use: Yes Substance Use Type: Cocaine Hx Substance Use Treatment: Yes - Substances abused Alcohol Substance route: Oral Frequency: Daily Amount used: 2- 24 oz cans Age of first use: 15 Date of last use: 07/27/19 Crack Substance route: Smoking Frequency: Daily Amount used: 10-15 bags Age of first use: 43 Date of last use: 07/29/19 Admission Physical Exam S - Vital Signs Vital Signs: Vital Signs - 24 hr 08/01/19 14:25 Temperature 98.4 F Pulse Rate 71 Respiratory 18 Rate Blood Pressure 146/86 - Physical General Appearance: Yes: Within Normal Limits HEENTM: Yes: Other (darkened tongue, missing teeth) Respiratory: Yes: Chest Non-Tender, Lungs Clear Neck: Yes: Within Normal Limits Breast: Yes: Breast Exam Deferred Cardiology: Yes: Regular Rhythm, Regular Rate, S1, S2. No: Edema Abdominal: Yes: Within Normal Limits Genitourinary: Yes: Within Normal Limits Back: Yes: Within Normal Limits Musculoskeletal: Yes: Within Normal Limits Extremities: Yes: Other (finger clubbing, hyperpigmented nails UE) Neurological: Yes: Within Normal Limits, Facial Droop (facial asymmetry,, reduced crease on L, nasolabial fold flattened on R (residual deficit)) Integumentary: Yes: Within Normal Limits Lymphatic: Yes: Within Normal Limits - Diagnostic (1) Cocaine dependence, uncomplicated Current Visit: No Status: Chronic Screened but not Admitted - Documentation of Visit Screened but not Admitted: Yes Level of Care Recommended at this Time: ER Evaluation/Care (Pt will get CXR for cough of 3 weeks, off HIV meds for 6 months, D/W ED resident) Breathalyzer - Breathalyzer Breathalyzer: 0 Urine Drug Screen - Test Device Lot number: [id number] Expiration date: 03/22/21 - Control Is test valid?: Yes - Results Drug screen NEGATIVE: No Urine drug screen results: [facility]-Cocaine Inpatient Rehab Admission - Rehab Decision to Admit Inpatient rehab admission?: No
--- NOTE | 2019-08-01 19:12 | PN ---
Teaching Attending Note Name of Resident: Yamilka Nelson ATTENDING PHYSICIAN STATEMENT I saw and evaluated the patient. I reviewed the resident's note and discussed the case with the resident. I agree with the resident's findings and plan as documented. SUBJECTIVE:59 yo pt here for rehab from cocaine and etoh , latest use 3 days ago . Reports productive cough x 3 weeks . PMHx HTN, Hinkle's Palsy, HIV, Herpes. reports non- compliance w/ meds . OBJECTIVE: wnwd Vital Signs - 24 hr 08/01/19 14:25 Temperature 98.4 F Pulse Rate 71 Respiratory 18 Rate Blood Pressure 146/86 ASSESSMENT AND PLAN: cocaine dependence / alcohol use disorder - transfer to [facility] ED for CXR re : cough in immunocompromised pt non- compliant w/ HAART , may return to rehab if medically cleared .
[2019-08-01] MEDS ORDERED: LOPERAMIDE HCL 2 MG CAPSULE PO PRN (23:11)
[2019-08-01] MEDS ORDERED: NICOTINE POLACRILEX 2 MG GUM BC PRN (23:11)
[2019-08-01] MEDS ORDERED: IBUPROFEN 400 MG TABLET (FP) PO PRN (23:11)
[2019-08-01] MEDS ORDERED: ACETAMINOPHEN 325 MG TABLET (FP) PO PRN (23:11)
[2019-08-01] MEDS ORDERED: MAGNESIUM HYDROX 2400MG/30ML ORAL SUSPENSION 30 ML CUP PO PRN (23:11)
[2019-08-01] MEDS ORDERED: MENTHOL/PHENOL 1 EACH UD MM PRN (23:11)
[2019-08-01] MEDS ORDERED: P-EPHED 60MG/TRIPROLIDI 2.5MG TABLET PO PRN (23:11)
[2019-08-01] MEDS ORDERED: MAGNESIUM CITRATE 300 ML BOTTLE PO PRN (23:11)
[2019-08-01] MEDS ORDERED: hydrOXYzine PAMOATE 50 MG CAPSULE (FP) PO PRN (23:11)
[2019-08-01] MEDS ORDERED: guaiFENesin 200 MG/10 ML 10 ML UNIT-DOSE CUPS PO PRN (23:11)
[2019-08-01] MEDS ORDERED: MAG HYDROX/AL HYDROX/SIMETH 30 ML UNIT-DOSE CUP PO PRN (23:11)
--- NOTE | 2019-08-01 23:17 | PN ---
[facility] Progress Note Note: client returns from [facility] after being medically cleared for cough Medical Decision Making - Medical Decision Making 08/01/19 21:59 Viral upper respiratory infection follow-up with PCP Discharge - Discharge Information Problems reviewed: Yes Clinical Impression/Diagnosis: Cough, Viral URI with cough Condition: Stable Disposition: HOME - Admission No - Follow up/Referral - Patient Discharge Instructions Additional Instructions: No pneumonia on chest radiograph follow-up primary care physician in 1 to 2 days for without fail return to the emergency room for further evaluation should symptoms worsen - Post Discharge Activity note- client was not restarted on home meds. reports she is not compliant with antivirals
[2019-08-02] MEDS: PRENATAL VITAMINS W/ FOLIC ACID TABLET (FP) PO SCH (09:20)
[2019-08-02] MEDS: NICOTINE 14 MG/24 HOURS TOPICAL PATCH TD SCH (09:21)
--- NOTE | 2019-08-02 10:04 | PN ---
[facility] Progress Note (SOAP) Subjective: Ms. Johnson is a patient known to me. Here for substance abuse treatment, admitted to rehab PMHX: Pt is a 59 yo F with PMHx of HTN, Hinkle's Palsy, HIV, Herpes rash, Depression Lost her daughter day after Thanks due to Cancer of stomach, and pt went for her and could not stay for rehab last time she was here. Pt now wants to get her life together to take care of her grandkids. Pt had been at her ex-sister in laws and able to stay off drugs since Wednesday, daughters Wednesday and burial yesterday (Wednesday). Pt coughing with clear phlegm-3 weeks (before of daughter with poor appetite), no blood, no chills, no chest pain, no nasal congestion, sore throat+ , got flu vaccine, friend was sick and sister in law with a cold, left them yesterday. Pt to go to [facility] for outpt rehab cocaine last use Wednesday, used 10 bags crack cocaine Wednesday night before 2 bags Never injected, Cocaine use since age 22. Started w/ sniffing and started smoking cocaine since age 39. ETOH Last drink Beer, 2 cans of beer-6 oz Drinks occassionally, about once a week Alcohol use since age 15. Used to drink more. Current use is now 2-3 16-24 ox cans 1-2x/week. Nicotine 5cigs a day- 4PPD Nicotine use since age 15. Current use approx 2 PPD. Mental Health: In 1982- took pills to harm herself, Kalpana Emery is her psychiatrist, saw her about 6 months ago. Was on meds [id number], stopped taking psych meds on her own. Denies thoughts of harming self or others. Longest period of sobriety [id number] Takes BP medications- last yesterday morning, herpes meds- last use only when she has an outbreak- 7 months, pt reports now having an outbreak on her buttocks and requests the meds took HIv meds last 6months ago from PCP Kalpana Back, since she sold them to get high Pt reports neg mammogram February 2019, pending pap smear All: Chicken popcorn and zucchini- hives FHx of cancer- breast cancer- sister, alive, throat cancer- brother Grandma-cervical cancer- at 78yrs Social Hx Had 8 kids 2 are - one from Cancer-at 40years to breast Ca Other was 23 year old M- was killed, gunshot (2006) Other kids 39,37, 34, 32, 22, 20 Worked as a patient accounts manager, 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 No problem with law currently Was in [facility] last 2016 (was in central booking and back for Shoplifting) Pt admitted with cough, sent to [facility], cleared-negative CXR Objective: P/E General: no apparent distress HEENTM: normocephalic, PERRLA Neuro: CN 2-12 intact MSK: full weight bearing HEART: s1 s2 Lungs: clear 08/02/19 10:04 Vital Signs Period Temp Pulse Resp BP Sys/Schilling Pulse Ox Last 24 Hr 98.4 F-98.5 F 59-71 16-18 146-162/84-86 08/02/19 10:06 Assessment: Admitted to rehab Hypertension 08/02/19 10:07 08/02/19 10:08 Plan: Continue substance abuse treatment Maintain safety Added nifedipine 60mg daily to medication regimen
[2019-08-02] MEDS: NIFEdipine E.R 60 MG TABLET (UD) PO SCH (11:00)
[2019-08-02 11:46] LABS: HEMATOCRIT 30.5 % (32.4-45.2); HEMOGLOBIN 9.4 GM/dL (10.7-15.3); MCH 22.9 pg (25.7-33.7); MCHC 30.8 g/dl (32.0-36.0); MEAN CELL VOLUME 74.3 fl (80-96); MEAN PLT VOLUME 9.4 fl (7.5-11.1); PLATELET COUNT 156 K/MM3 (134-434); RBC 4.11 M/mm3 (3.60-5.2); RDW 15.6 % (11.6-15.6); WHITE BLOOD COUNT 4.5 K/mm3 (4.0-10.0)
[2019-08-02 11:49] LABS: ALBUMIN 2.9 g/dl (3.4-5.0); BILIRUBIN,TOTAL 0.3 mg/dL (0.2-1); BLOOD UREA NITROGEN 19.4 mg/dL (7-18); CALCIUM 7.8 mg/dL (8.5-10.1); CREATININE 1.2 mg/dL (0.55-1.3); POTASSIUM 3.7 mmol/L (3.5-5.1); TOT PROT 6.7 g/dl (6.4-8.2)
--- NOTE | 2019-08-02 11:52 | EKG ---
Test Reason : Blood Pressure : / mmHG Vent. Rate : 062 BPM Atrial Rate : 062 BPM P-R Int : 198 ms QRS Dur : 098 ms QT Int : 464 ms P-R-T Axes : 064 046 036 degrees QTc Int : 470 ms NORMAL SINUS RHYTHM SEPTAL INFARCT , AGE UNDETERMINED ABNORMAL ECG WHEN COMPARED WITH ECG OF 27-DEC-2018 06:33, SEPTAL INFARCT IS NOW PRESENT Confirmed by CALVIN HOGUE, JASMIN ([id number]) on 08/02/2019 11:51:35 AM Referred By: Confirmed By:JASMIN SIMPSON MD
[2019-08-02] MEDS: THIAMINE HCL 100 MG TABLET (FP) PO SCH (21:44)
[2019-08-02] MEDS: MELATONIN 5 MG TABLETS PO PRN (21:45)
[2019-08-03] MEDS: NIFEdipine E.R 60 MG TABLET (UD) PO SCH (09:18)
[2019-08-03] MEDS: PRENATAL VITAMINS W/ FOLIC ACID TABLET (FP) PO SCH (09:18)
[2019-08-03] MEDS: NICOTINE 14 MG/24 HOURS TOPICAL PATCH TD SCH (09:18)
--- NOTE | 2019-08-03 12:02 | PN ---
[facility] Progress Note (SOAP) Subjective: patient reports herpes breakout, genital area. PMHx of Genital herpes and HIV, not on medication. Objective: 08/03/19 12:00 CBC, BMP 08/02/19 08:20 08/02/19 08:20 Vital Signs Period Temp Pulse Resp BP Sys/Schilling Pulse Ox Last 24 Hr 98.7 F 72-80 16-16 127-135/75-79 P/E General: no apparent distress HEENTM: normocephalic Neck: supple Lungs: clear Heart: s1 s2 Skin-clear, color consistent Genitourinary: deferred Assessment: Genital herpes 08/03/19 12:02 Plan: Valtrex ordered./
--- NOTE | 2019-08-03 12:05 | PN ---
[facility] Progress Note Note: HBG/HCT low, asymptomatic, P/E: General: no apparent distress HEENTM: normocephalic Lungs: clear, respirations easy and unlabored SKIN: mucous membranes pale AssessmentL anemia Plan: will start feosol and vitamin C
[2019-08-03] MEDS: valACYclovir HCL 500 MG TABLET (FP) PO SCH ×2 (13:10→21:45)
[2019-08-03] MEDS: THIAMINE HCL 100 MG TABLET (FP) PO SCH (21:44)
[2019-08-03] MEDS: MELATONIN 5 MG TABLETS PO PRN (21:45)
[2019-08-03] MEDS: FERROUS SO4 325 MG TABLET (FP) PO SCH (21:45)
[2019-08-03] MEDS: ASCORBIC ACID 500 MG TABLET (FP) PO SCH (21:46)
[2019-08-04] MEDS: NICOTINE 14 MG/24 HOURS TOPICAL PATCH TD SCH (10:03)
[2019-08-04] MEDS: FERROUS SO4 325 MG TABLET (FP) PO SCH ×2 (10:04→21:19)
[2019-08-04] MEDS: PRENATAL VITAMINS W/ FOLIC ACID TABLET (FP) PO SCH (10:04)
[2019-08-04] MEDS: ASCORBIC ACID 500 MG TABLET (FP) PO SCH ×2 (10:04→21:20)
[2019-08-04] MEDS: valACYclovir HCL 500 MG TABLET (FP) PO SCH ×2 (10:04→21:19)
[2019-08-04] MEDS: NIFEdipine E.R 60 MG TABLET (UD) PO SCH (10:04)
[2019-08-04] MEDS ORDERED: PT OWN MED DRAWER 7, Y5N ONE ×3 (14:22→20:44)
[2019-08-04] MEDS: THIAMINE HCL 100 MG TABLET (FP) PO SCH (21:19)
[2019-08-04] MEDS: MELATONIN 5 MG TABLETS PO PRN (21:20)
[2019-08-04] MEDS ORDERED: COLLOIDAL OATMEAL 1 BAR EACH TP PRN (23:18)
--- NOTE | 2019-08-04 23:18 | PN ---
[facility] Progress Note Note: c/o slightly itchy rash on arms.Noticed earlier today. Papular, erythematous lesions noted on ubothe upper arms at sleeve area. No lesions on chest, abd, or back. Plan: [place] Soap Benadryl cream to rash area. Encouraged f/u if rash worsens.
[2019-08-05] MEDS ORDERED: PT OWN MED DRAWER 7, Y5N ONE ×2 (09:00→21:21)
[2019-08-05] MEDS: FERROUS SO4 325 MG TABLET (FP) PO SCH ×2 (09:11→21:18)
[2019-08-05] MEDS: NIFEdipine E.R 60 MG TABLET (UD) PO SCH (09:11)
[2019-08-05] MEDS: valACYclovir HCL 500 MG TABLET (FP) PO SCH ×2 (09:11→21:18)
[2019-08-05] MEDS: ASCORBIC ACID 500 MG TABLET (FP) PO SCH ×2 (09:11→21:19)
[2019-08-05] MEDS: PRENATAL VITAMINS W/ FOLIC ACID TABLET (FP) PO SCH (09:11)
[2019-08-05] MEDS: NICOTINE 14 MG/24 HOURS TOPICAL PATCH TD SCH (09:58)
[2019-08-05] MEDS: THIAMINE HCL 100 MG TABLET (FP) PO SCH (21:19)
[2019-08-05] MEDS: MELATONIN 5 MG TABLETS PO PRN (21:19)
[2019-08-06 07:19] VITALS: TEMP 98
[2019-08-06] MEDS ORDERED: PT OWN MED DRAWER 7, Y5N ONE (08:44)
[2019-08-06] MEDS: valACYclovir HCL 500 MG TABLET (FP) PO SCH (09:29)
[2019-08-06] MEDS: PRENATAL VITAMINS W/ FOLIC ACID TABLET (FP) PO SCH (09:29)
[2019-08-06] MEDS: FERROUS SO4 325 MG TABLET (FP) PO SCH (09:29)
[2019-08-06] MEDS: ASCORBIC ACID 500 MG TABLET (FP) PO SCH (09:30)
[2019-08-06] MEDS: NICOTINE 14 MG/24 HOURS TOPICAL PATCH TD SCH (09:31)
[2019-08-06] MEDS: NIFEdipine E.R 60 MG TABLET (UD) PO SCH (09:31)
[2019-08-06 10:21] VITALS: BP 129/83; PULSE 73
--- NOTE | 2019-08-06 13:56 | PN ---
S Progress Note Note: Patient decided to leave AMA did not want to wait for provider to get to the floor.
--- NOTE | 2019-08-06 14:00 | DS ---
[facility] Rehab Discharge Summary - [facility] Rehab Discharge Summary Admission Date: 08/01/19 Discharge Date: 08/06/19 - History Present History: Alcohol dependence, Cocaine dependence Additional Comments: Patient left AMA. Follow up with attached referral. Follow up with primary care provider, if worsening symptoms are present - Discharge Physical Exam Vital Signs: Vital Signs Temperature 98.0 F 08/06/19 09:24 Pulse Rate 73 08/06/19 10:20 Respiratory Rate 16 08/06/19 10:20 Blood Pressure 129/83 08/06/19 10:20 O2 Sat by Pulse Oximetry (%) - Treatment Discharge Condition: Discharge condition good - Medication Discharge Medications: Ambulatory Orders Abacavir/Dolutegravir/Lamivudi [Triumeq Tablet] 1 each PO DAILY 12/26/18 Ferrous Sulfate 325 mg PO BID 12/26/18 Fluconazole 100 mg PO DAILY 12/26/18 Nifedipine ER [Procardia Xl -] 30 mg PO DAILY 12/26/18 Valacyclovir HCl [Valtrex -] 500 mg PO BID 12/26/18 Ibuprofen [Motrin -] 600 mg PO PRN 08/01/19 Rosuvastatin Calcium 20 mg PO DAILY 08/01/19 - Medication-Assisted Treatment (MAT) Medication-Assisted Treatment (MAT): No - Discharge Instructions Diet, activity, other medical instructions: Diet: Activity: Other medical instructions: - Diagnosis (1) Uncomplicated alcohol abuse Status: Acute (2) Viral URI with cough Status: Acute (3) Weight loss Status: Acute (4) Cocaine dependence, uncomplicated Status: Chronic (5) Essential hypertension Status: Chronic (6) HIV (human immunodeficiency virus infection) Status: Chronic Qualifiers: HIV symptom status: unspecified Qualified Code(s): B20 - Human immunodeficiency virus [HIV] disease (7) Nicotine dependence Status: Chronic Qualifiers: Nicotine product type: cigarettes Substance use status: uncomplicated Qualified Code(s): F17.210 - Nicotine dependence, cigarettes, uncomplicated - AMA Did Patient Leave Against Medical Advice: Yes
== END 2019-08-06 11:30 | disposition left against medical advice (07) | DRG 770 ==
LOC: YASAS 12:15 → Y3E 22:59
PROVIDERS: ADMIT Neuromusculoskeletal Medicine & OMM; ATTEND Neuromusculoskeletal Medicine & OMM
PROC: HZ42ZZZ Group Counseling for Substance Abuse Treatment, Cognitive-Behavioral (ICD-10-PCS; principal; 2019-08-01)
DX: F14.20 Cocaine dependence, uncomplicated (principal); F10.10 Alcohol abuse, uncomplicated; F17.210 Nicotine dependence, cigarettes, uncomplicated; Z21 Asymptomatic human immunodeficiency virus [HIV] infection status; I10 Essential (primary) hypertension; R63.4 Abnormal weight loss; J06.9 Acute upper respiratory infection, unspecified; B97.89 Other viral agents as the cause of diseases classified elsewhere; R21 Rash and other nonspecific skin eruption; R05 Cough; D64.9 Anemia, unspecified; A60.00 Herpesviral infection of urogenital system, unspecified; Z91.018 Allergy to other foods; Z86.73 Personal history of transient ischemic attack (TIA), and cerebral infarction without residual deficits
CPT/HCPCS: 36415; 80053; 85027; 86593; 93005; 93010

== ENCOUNTER 2019-08-01 20:20 | Emergency (ER) | payer OTHER ==
[2019-08-01 20:47] VITALS: BP 127/76; PULSE 70; TEMP 98.1; BMI 24.9
--- NOTE | 2019-08-01 20:53 | PDOC ---
Rapid Medical Evaluation Chief Complaint: Cold Symptoms Time Seen by Provider: 08/01/19 20:51 Medical Evaluation: Allergies Allergy/AdvReac Type Severity Reaction Status Date / Time No Known Drug Allergies Allergy Verified 08/01/19 20:47 squash Allergy Intermediate Itching Uncoded 08/01/19 20:47 zucchini Allergy Intermediate Itching Uncoded 08/01/19 20:47 Vital Signs Temp Pulse Resp BP Pulse Ox 98.1 F 70 17 127/76 100 08/01/19 20:43 08/01/19 20:43 08/01/19 20:43 08/01/19 20:43 08/01/19 20:43 08/01/19 20:52 I have performed a brief in-person evaluation of this patient. The patient presents with a chief complaint of: sent in from [facility] for chest x-rays to r/o PNA due to cough Pertinent physical exam findings: A&O x 3 I have ordered the following: CXR The patient will proceed to the ED for further evaluation. Discharge Disposition - Diagnosis Cough - Discharge Dispostion Condition at time of disposition: Stable - Referrals - Patient Instructions - Post Discharge Activity
--- NOTE | 2019-08-01 22:00 | PDOC ---
History of Present Illness - General Chief Complaint: Cold Symptoms Stated Complaint: COUGH Time Seen by Provider: 08/01/19 20:51 - History of Present Illness Initial Comments: 08/01/19 21:58 59-year-old female presents for evaluation from the facility where she lives to rule out pneumonia she needs a chest x-ray. She is had a cough for 3 days without systemic symptoms Past History - Past Medical History Allergies/Adverse Reactions: Allergies Allergy/AdvReac Type Severity Reaction Status Date / Time No Known Drug Allergies Allergy Verified 08/01/19 20:47 squash Allergy Intermediate Itching Uncoded 08/01/19 20:47 zucchini Allergy Intermediate Itching Uncoded 08/01/19 20:47 Home Medications: Ambulatory Orders Abacavir/Dolutegravir/Lamivudi [Triumeq Tablet] 1 each PO DAILY 12/26/18 Ferrous Sulfate 325 mg PO BID 12/26/18 Fluconazole 100 mg PO DAILY 12/26/18 Nifedipine ER [Procardia Xl -] 30 mg PO DAILY 12/26/18 Valacyclovir HCl [Valtrex -] 500 mg PO BID 12/26/18 Ibuprofen [Motrin -] 600 mg PO PRN 08/01/19 Rosuvastatin Calcium 20 mg PO DAILY 08/01/19 Anemia: Yes Asthma: No Cancer: No Cardiac Disorders: No CVA: No COPD: No CHF: No Dementia: No Diabetes: No GI Disorders: No Disorders: No HTN: Yes Hypercholesterolemia: No Kidney Stones: No Liver Disease: No Seizures: No Thyroid Disease: No - Surgical History Abdominal Surgery: No Appendectomy: No Cardiac Surgery: No Cholecystectomy: Yes (LAP CHOLECYSTECTOMY 2004 ) Lung Surgery: No Neurologic Surgery: No Orthopedic Surgery: No - Reproductive History PID: No - Immunization History Immunization Up to Date: Yes - Psycho Social/Smoking Cessation Hx Smoking History: Current every day smoker Have you smoked in the past 12 months: Yes Number of Cigarettes Smoked Daily: 10 Cigars Per Day: 0 Information on smoking cessation initiated: Yes 'Breaking Loose' booklet given: 08/01/19 Hx Alcohol Use: No Drug/Substance Use Hx: Yes Substance Use Type: Cocaine Hx Substance Use Treatment: Yes Review of Systems - Review of Systems Constitutional: No: Fever Respiratory: Yes: Cough *Physical Exam - Vital Signs Last Vital Signs Temp Pulse Resp BP Pulse Ox 98.1 F 70 17 127/76 100 08/01/19 20:43 08/01/19 20:43 08/01/19 20:43 08/01/19 20:43 08/01/19 20:43 - Physical Exam 08/01/19 21:58 GENERAL: The patient is awake, alert, and fully oriented, in no acute distress. HEAD: Normal with no signs of trauma. EYES: sclera anicteric, conjunctiva clear. ENT: Ears normal tympanic membranes normal oropharynx clear uvula midline NECK: Normal range of motion LUNGS: Breath sounds equal, clear to auscultation bilaterally. No wheezes, and no crackles. HEART: S1 and S2 without murmur, rub or gallop. ABDOMEN: Soft, nontender, normoactive bowel sounds. No guarding, no rebound. No masses. EXTREMITIES: Normal range of motion, no edema. No clubbing or cyanosis. No cords, erythema, or tenderness. NEUROLOGICAL: Cranial nerves II through XII grossly intact. Normal speech, normal gait. PSYCH: Normal mood, normal affect. SKIN: Warm, Dry, normal turgor, no rashes or lesions noted. Medical Decision Making - Medical Decision Making 08/01/19 21:59 Viral upper respiratory infection follow-up with PCP Discharge - Discharge Information Problems reviewed: Yes Clinical Impression/Diagnosis: Cough, Viral URI with cough Condition: Stable Disposition: HOME - Admission No - Follow up/Referral - Patient Discharge Instructions Additional Instructions: No pneumonia on chest radiograph follow-up primary care physician in 1 to 2 days for without fail return to the emergency room for further evaluation should symptoms worsen - Post Discharge Activity
== END 2019-08-01 22:11 | disposition home or self-care (01) ==
LOC: JERFT 20:20
DX: J06.9 Acute upper respiratory infection, unspecified (principal); B97.89 Other viral agents as the cause of diseases classified elsewhere; R05 Cough; Z91.018 Allergy to other foods; F17.210 Nicotine dependence, cigarettes, uncomplicated; I10 Essential (primary) hypertension
CPT/HCPCS: 71046-TC-FY; 99281-25